=== PATIENT | female | born 1985 | race Two or more races ===

== ENCOUNTER 2016-11-27 08:32 | Observation (INO) | payer SELFPAY ==
[2016-07-09 18:28] VITALS: BP 124/65
[~2016-11-27 08:32] MED LIST: METR500T PO; NITR100C PO; NITR100C62 PO
[2016-11-27] MEDS ORDERED: IV DEXTROSE 5%-LACT RINGERS 1,000 ML IV ONE (12:30)
[2016-11-27] MEDS ORDERED: AMPICILLIN SODIUM 2 GM in IV NORMAL SALINE 100ML 100 ML IV ONE (12:45)
== END 2016-11-27 15:41 | disposition home or self-care (01) ==
LOC: 3 SO LND 08:32
PROVIDERS: ADMIT Obstetrics & Gynecology; ATTEND Obstetrics & Gynecology
DX: O62.9 Abnormality of forces of labor, unspecified (principal); Z3A.32 32 weeks gestation of pregnancy
CPT/HCPCS: 96361; 96365; G0378; G0379; J0290; J7120

== ENCOUNTER 2021-12-27 16:25 | Emergency (ER) | payer MEDICAID, OTHER ==
[~2021-12-27] VITALS: Ht 152.4 cm; Wt 65.0 kg
[~2021-12-27 16:25] MED LIST changes: +HYDR-3164 PO; +NAPR-514 PO
--- NOTE | 2021-12-27 17:26 | PHYS DOC ---
Past Medical History Past Medical History: No Pertinent History Past Surgical History: No Surgical History Smoking Status: Never Smoker Alcohol Use: None Drug Use: None General Adult EDM: Chief Complaint: BACK PAIN OR INJURY HPI: HPI: Patient is a 36-year-old female who presents today with low abdominal and back pain. Patient is [place]-speaking only and all information was obtained using a interpretive services. Patient states the pain started last evening, she said she has had 2 bouts of vomiting since last night, patient also states she has been having vaginal bleeding for upwards of 3 weeks she said the last 12 hours she has had increased vaginal bleeding as well. Patient states that approximately 3 months ago she had her Nexplanon implant removed, and she said for the past 3 weeks she has had increased vaginal bleeding. Patient states that she has been sexually active been using a condom she does not believe she is . Review of Systems: Review of Systems: Constitutional: Denies fever or chills. [] Eyes: Denies change in visual acuity. [] HENT: Denies nasal congestion or sore throat. [] Respiratory: Denies cough or shortness of breath. [] Cardiovascular: Denies chest pain or edema. [] GI: abdominal pain, nausea, vomiting, denies bloody stools or diarrhea. [] /FRAMING INSPECTOR: Vaginal bleeding denies dysuria. [] Musculoskeletal: low back pain Integument: Denies rash. [] Neurologic: Denies headache, focal weakness or sensory changes. [] Endocrine: Denies polyuria or polydipsia. [] Lymphatic: Denies swollen glands. [] Psychiatric: Denies depression or anxiety. [] Heart Score: C/O Chest Pain: No Risk Factors: Risk Factors: DM, Current or recent (<one month) smoker, HTN, HLP, family history of CAD, obesity. Risk Scores: Score 0 - 3: 2.5% MACE over next 6 weeks - Discharge Home Score 4 - 6: 20.3% MACE over next 6 weeks - Admit for Clinical Observation Score 7 - 10: 72.7% MACE over next 6 weeks - Early Invasive Strategies Allergies: Allergies: Allergies Coded Allergies Type Severity Reaction Last Updated Verified No Known Drug Allergies 02/08/16 No Physical Exam: PE: Constitutional: Well developed, well nourished, mild distress, non-toxic appearance. [] HENT: Normocephalic, atraumatic, bilateral external ears normal, oropharynx moist, no oral exudates, nose normal. [] Eyes: PERRLA, EOMI, conjunctiva normal, no discharge. [] Neck: Normal range of motion, no tenderness, supple, no stridor. [] Cardiovascular:Heart rate regular rhythm, no murmur [] Lungs & Thorax: Bilateral breath sounds clear to auscultation [] Abdomen: Abdomen soft and tender in the lower abdomen, no pulsatile masses noted bowel sounds are present Skin: Warm, dry, no erythema, no rash. [] Back: No tenderness, no CVA tenderness. [] Extremities: No tenderness, no cyanosis, no clubbing, ROM intact, no edema. [] Neurologic: Alert and oriented X 3, normal motor function, normal sensory function, no focal deficits noted. [] Psychologic: Affect normal, judgement normal, mood normal. [] Pelvic Exam: External exam is normal and without rash, no CMT, OS is closed, blood noted in the vaginal vault, uterus tenderness with bimanual exam, No adnexal masses or tenderness noted, cultures were obtained, pelvic exam was done in the presence of an RN at the bedside. Current Patient Data: Labs: Laboratory Tests Test 12/27/21 17:35 12/27/21 17:36 Urine Collection Type Unknown Urine Color (Auto) Brown Urine Turbidity Turbid Urine pH (Auto) 7.0 Urine Specific [place] 1.023 Urine Protein (Auto) 30 mg/dL Urine Glucose (Auto)(UA) Negative mg/dL Urine Ketones (Auto) Negative mg/dL Urine Blood (Auto) Large Urine Nitrite Negative Urine Bilirubin (Auto) Negative Urine Urobilinogen (Auto) Normal mg/dL Urine Leukocyte Esterase (Auto) Small Urine RBC >40 /HPF Urine WBC 1-4 /HPF Urine Squamous Epithelial Cells Few /LPF Urine Bacteria Moderate /HPF Urine Mucus Slight /LPF White Blood Count 8.2 x10^3/uL Red Blood Count 4.70 x10^6/uL Hemoglobin 13.9 g/dL Hematocrit 41.2 % Mean Corpuscular Volume 88 fL Mean Corpuscular Hemoglobin 30 pg Mean Corpuscular Hemoglobin Concent 34 g/dL Red Cell Distribution Width 12.8 % Platelet Count 226 x10^3/uL Neutrophils (%) (Auto) 61 % Lymphocytes (%) (Auto) 30 % Monocytes (%) (Auto) 5 % Eosinophils (%) (Auto) 3 % Basophils (%) (Auto) 1 % Neutrophils # (Auto) 5.0 x10^3/uL Lymphocytes # (Auto) 2.5 x10^3/uL Monocytes # (Auto) 0.4 x10^3/uL Eosinophils # (Auto) 0.2 x10^3/uL Basophils # (Auto) 0.0 x10^3/uL Sodium Level 140 mmol/L Potassium Level 4.0 mmol/L Chloride Level 105 mmol/L Carbon Dioxide Level 28 mmol/L Anion Gap 7 Blood Urea Nitrogen 15 mg/dL Creatinine 0.7 mg/dL Estimated GFR (Cockcroft-Gault) 93.6 BUN/Creatinine Ratio 21 Glucose Level 88 mg/dL Calcium Level 9.3 mg/dL Total Bilirubin 0.2 mg/dL Aspartate Amino Transf (AST/SGOT) 19 U/L Alanine Aminotransferase (ALT/SGPT) 41 U/L Alkaline Phosphatase 87 U/L Total Protein 7.8 g/dL Albumin 3.5 g/dL Albumin/Globulin Ratio 0.8 Serum Test, Qualitative Negative Current Medications Medications (Trade) Dose Ordered Sig/Harjeet Route PRN Reason Start Time Stop Time Status Last Admin Dose Admin Sodium Chloride 1,000 ml @ 999 mls/hr 1X ONCE IV 12/27/21 17:30 12/27/21 18:30 DC 12/27/21 17:50 Ondansetron HCl (Zofran) 4 mg 1X ONCE IVP 12/27/21 17:30 12/27/21 17:31 DC 12/27/21 17:50 Vital Signs: Vital Signs Date Time Temp Pulse Resp B/P (MAP) Pulse Ox O2 Delivery O2 Flow Rate FiO2 12/27/21 17:52 70 18 103/62 (76) 98 Room Air 12/27/21 17:29 99.1 69 14 133/91 (105) 99 Room Air 99.1 EKG: EKG: [] Radiology/Procedures: Radiology/Procedures: REASON: abdominal pain PROCEDURE: CT ABDOMEN PELVIS WO CONTRAST EXAMINATION: CT ABDOMEN+PELVIS WO CLINICAL HISTORY: Abdominal pain. TECHNIQUE: Imaging of the abdomen and pelvis was performed without intravenous contrast using standard technique, scanning from just above the dome of the diaphragm to the symphysis pubis. Unenhanced imaging is limited for the evaluation of some intra-abdominal and pelvic pathology. CT Dose Reduction Employed: One or more of the following individualized dose reduction techniques were utilized for this examination: 1. Automated exposure control 2. Adjustment of the mA and/or kV according to patient size 3. Use of iterative reconstruction technique. COMPARISON: None FINDINGS: Visualized heart and lungs unremarkable. Nondistended gallbladder. Liver, pancreas, spleen, adrenal glands, and kidneys unremarkable. Minimally filled urinary bladder. Uterus and ovaries unremarkable on limited evaluation. No dilated bowel. Partially visualized appendix appears normal. No abdominal aortic or iliac artery aneurysm. No evidence of acute osseous abnormality. IMPRESSION: No evidence of acute abdominopelvic abnormality. Electronically signed by: Richar Rodgers DO (12/27/2021 7:43 PM) [facility] [] Course & Med Decision Making: Course & Med Decision Making Pertinent Labs and Imaging studies reviewed. (See chart for details) 2000 I reviewed radiological and laboratory results with patient using interpretive services, I stated there was no acute findings at this time, it is important that she follow-up with her [facility] or with Dr. Hughes who is our [facility] on-call for further evaluation and management of her abnormal uterine bleeding. Patient can take Tylenol and/or ibuprofen as needed for pain, patient verbalized understanding of this and is agreeable with the plan of care. Bro Disclaimer: Bro Disclaimer: This electronic medical record was generated, in whole or in part, using a voice recognition dictation system. Departure Departure Impression: Primary Impression: Abnormal uterine bleeding Disposition: 01 HOME / SELF CARE / HOMELESS Condition: STABLE Referrals: PETE CANTU MD (PCP) LESTER HUGHES MD Patient Instructions: Abnormal Uterine Bleeding Additional Instructions: Follow-up with Dr. Hughes who is the [facility] on-call for further evaluation and management of your abnormal bleeding Return to the emergency department should you have fainting episode, you have blurred vision double vision, and you have dizziness. Tylenol and/or ibuprofen as needed for pain LINH YATES PALEOLOGY PROFESSOR December 27, 2021 17:26
[2021-12-27] MEDS ORDERED: ONDANSETRON PF 4 MG/2 ML VIAL. IVP ONE (17:30)
[2021-12-27] MEDS ORDERED: IV NORMAL SALINE 1000ML BAG 1,000 ML IV ONE (17:30)
[2021-12-27 17:43] LABS: BASO % 1 % (0-3); EOS # 0.2 x10^3/uL (0.0-0.7); EOS % 3 % (0-3); HEMATOCRIT 41.2 % (36.0-47.0); HEMOGLOBIN 13.9 g/dL (12.0-15.5); LYMPH # 2.5 x10^3/uL (1.0-4.8); LYMPH % 30 % (24-48); MEAN CORPUSCULAR HEMOGLOBIN 30 pg (25-35); MEAN CORPUSCULAR HGB CONC 34 g/dL (31-37); MEAN CORPUSCULAR VOLUME 88 fL (79-100); MONO # 0.4 x10^3/uL (0.0-1.1); MONO % 5 % (0-9); NEUT % 61 % (31-73); PLATELET COUNT 226 x10^3/uL (140-400); RED CELL DISTRIBUTION WIDTH 12.8 % (11.5-14.5); WHITE BLOOD COUNT 8.2 x10^3/uL (4.0-11.0)
[2021-12-27 17:52] VITALS: BP 103/62
[2021-12-27 18:02] LABS: CALCIUM 9.3 mg/dL (8.5-10.1); CREATININE 0.7 mg/dL (0.6-1.0); GFR 93.6
[2021-12-27 18:09] LABS: BACTERIA,URINE MODERATE /HPF (0-FEW); RBC,URINE >40 /HPF (0-2)
[2021-12-27 18:10] LABS: ALBUMIN 3.5 g/dL (3.4-5.0); ALBUMIN/GLOBULIN RATIO 0.8 (1.0-1.7); TOTAL BILIRUBIN 0.2 mg/dL (0.2-1.0); TOTAL PROTEIN 7.8 g/dL (6.4-8.2)
[2021-12-27 18:45] LABS: PREG TEST PT QUAL NEGATIVE (NEG)
--- NOTE | 2021-12-27 19:45 | RAD ---
EXAMINATION: CT ABDOMEN+PELVIS WO CLINICAL HISTORY: Abdominal pain. TECHNIQUE: Imaging of the abdomen and pelvis was performed without intravenous contrast using standar d technique, scanning from just above the dome of the diaphragm to the symphysis pubis. Unenhanced i maging is limited for the evaluation of some intra-abdominal and pelvic pathology. CT Dose Reduction Employed: One or more of the following individualized dose reduction techniques wer e utilized for this examination: 1. Automated exposure control 2. Adjustment of the mA and/or kV ac cording to patient size 3. Use of iterative reconstruction technique. COMPARISON: None FINDINGS: Visualized heart and lungs unremarkable. Nondistended gallbladder. Liver, pancreas, spleen, adrenal glands, and kidneys unremarkable. Minimally filled urinary bladder. Uterus and ovaries unremarkable on limited evaluation. No dilated bowel. Partially visualized appendix appears normal. No abdominal aortic or iliac artery aneurysm. No evidence of acute osseous abnormality. IMPRESSION: No evidence of acute abdominopelvic abnormality. Electronically signed by: Richar Rodgers DO (12/27/2021 7:43 PM) [facility]
[2021-12-29 18:10] LABS: GC PROBE Negative (Negative)
== END 2021-12-27 20:06 | disposition home or self-care (01) ==
LOC: ER 16:25
DX: N93.9 Abnormal uterine and vaginal bleeding, unspecified (principal); R11.2 Nausea with vomiting, unspecified; M54.50 Low back pain, unspecified
CPT/HCPCS: 36415; 74176; 80053; 81001; 84703; 85025; 87086; 87491; 87591; 96361; 96374; 99284; J2405; J7030; Q0111